=== PATIENT | female | born 1960 | race Caucasian/White ===

== ENCOUNTER 2023-04-03 13:30 | Outpatient (REF) | payer BC, SELFPAY ==
--- NOTE | 2023-04-03 12:00 | PAPFT_PTH ---
PATIENT: Moni Thapa LOC: [facility]#:[id number] AGE/SX: 62/F ROOM: RE04/03/[address]: LAQUITA LEAL : 1960 BED: DIS: 04/03/2023 SPEC #: [id number] RECD: 04/06/23 12:40 STATUS: CHIQUIS REQ #: [id number] LÁZARO: 04/03/23 12:[address]: Laquita Leal DEPT: [facility] Cytology RECD BY: Nguyen Mc ENTERED: 04/06/23 12:40 SP TYPE: PAPFT OTHR DR: Kori Vega Tissues: 1 - CX/ENDOCX FOR PAP SMEARS Procedures: PAP THIN PREP/[facility] Screening HPV DNA PROBE Comments: [id number]
[2023-04-03 15:55] LABS: HCT 41.1 % (36.0-46.0); HGB 14.1 g/dL (11.2-15.7); MCH 34.7 pg (27.0-33.0); MCHC 34.3 % (32.0-36.0); MCV 101 fL (80-95); MPV 10.1 fL (8.0-11.0); Platelet Count 243 10^3/uL (130-400); RBC 4.06 10^6/uL (3.93-5.22); RDW-SD 45.6 fL
[2023-04-03 16:40] LABS: ALT 19 U/L (14-59); AST 21 U/L (15-37); Albumin 3.6 g/dL (3.4-5.0); Alkaline Phosphatase 72 U/L (46-116); Anion Gap 11.6 mmol/L (3-11); BUN 15 mg/dL (7-18); Bilirubin, Total 0.6 mg/dL (0.2-1.0); CO2 26.4 mmol/L (21.0-32.0); CREATININE 0.8 mg/dL (0.55-1.02); Calcium 9.6 mg/dL (8.5-10.1); Calculated LDL 114 mg/dL (<100); Chloride 103 mmol/L (98-107); Cholesterol 221 mg/dL (<200); Glucose 100 mg/dL (74-106); HDL Cholesterol 89 mg/dL (40-60); Potassium 4.1 mmol/L (3.5-5.1); Sodium 141 mmol/L (136-145); Total Protein 7.5 g/dL (6.4-8.2); Triglyceride 92 mg/dL (<150); Vitamin B12 259 pg/mL (193-986)
[2023-04-03 18:41] LABS: Vitamin D 25 Total 56.6 ng/mL (30-100)
== END 2023-04-03 13:31 | disposition home or self-care (01) ==
LOC: NCHCN 13:30
PROVIDERS: PCP Internal Medicine; Visit Provider Nurse Practitioner Family
DX: E53.8 Deficiency of other specified B group vitamins (principal); E55.9 Vitamin D deficiency, unspecified; I10 Essential (primary) hypertension; Z86.718 Personal history of other venous thrombosis and embolism; Z12.4 Encounter for screening for malignant neoplasm of cervix; Z13.220 Encounter for screening for lipoid disorders
CPT/HCPCS: 80053; 80061; 82306; 85027; 88142; 82607; 87624